=== PATIENT | female | born 2000 | race Caucasian/White ===

== ENCOUNTER 2022-12-04 11:44 | Outpatient (CLI) | payer BC, SELFPAY ==
[2022-12-04 23:07] LABS: GC DNA Amplified* NOT DETECTED (No Detected)
[2022-12-04 23:13] LABS: Chlamydia DNA Amplified* DETECTED (No Detected)
== END 2022-12-04 11:45 | disposition home or self-care (01) ==
LOC: FRMREF 11:49
PROVIDERS: PCP Physician Assistant Medical; Visit Provider Physician Assistant Medical
DX: Z01.419 Encounter for gynecological examination (general) (routine) without abnormal findings (principal); Z30.42 Encounter for surveillance of injectable contraceptive; Z11.3 Encounter for screening for infections with a predominantly sexual mode of transmission
CPT/HCPCS: 0353U